=== PATIENT | female | born 1975 | race Two or more races ===

== ENCOUNTER 2017-06-10 07:54 | Outpatient (CLI) | payer OTHER | END 2017-06-10 07:56 | disposition home or self-care (01) | LOC: RX STUDY 07:54 | DX: D50.9 Iron deficiency anemia, unspecified (principal) ==

== ENCOUNTER 2018-10-23 06:40 | Day surgery (SDC) | payer OTHER ==
[~2018-10-23 06:40] MED LIST: CRESTOR5 MG PO
== END 2018-10-23 09:55 | disposition home or self-care (01) ==
LOC: CIR.AMB 06:40
DX: N84.0 Polyp of corpus uteri (principal)

== ENCOUNTER 2019-10-05 13:03 | Outpatient (CLI) | payer OTHER | END 2019-10-05 13:22 | disposition home or self-care (01) | LOC: SONOGRAMA 13:03 | PROVIDERS: ATTEND Surgery | DX: N60.11 Diffuse cystic mastopathy of right breast (principal); N60.12 Diffuse cystic mastopathy of left breast ==

== ENCOUNTER 2022-09-03 07:23 | Outpatient (CLI) | payer OTHER | END 2022-09-03 07:24 | disposition home or self-care (01) | LOC: NUCLEAR 07:23 | PROVIDERS: ATTEND Internal Medicine Gastroenterology | DX: K31.84 Gastroparesis (principal) ==